=== PATIENT | male | born 1945 | race Caucasian/White ===

== ENCOUNTER → 2018-02-09 | Outpatient (CLI) | payer MEDICARE, OTHER ==
[~2018-02-09] MED LIST: ADULT LOW DOSE81 MG; AMBEREN; DIOVAN160 MG; LIPITOR20 MG; MECLIZINE HCL12.5 MG PO; ZOFRAN4 MG PO
== END ==
LOC: M.ULTRA 09:36
DX: I12.9 Hypertensive chronic kidney disease with stage 1 through stage 4 chronic kidney disease, or unspecified chronic kidney disease (principal); N18.3 Chronic kidney disease, stage 3 (moderate)

== ENCOUNTER → 2018-04-28 | Outpatient (CLI) | payer MEDICARE, OTHER ==
[2018-04-28 09:41] LABS: CREATININE 1.6 mg/dL (0.6-1.3)
== END ==
LOC: M.LAB 09:10
PROVIDERS: Urology
DX: R31.29 Other microscopic hematuria (principal); I12.9 Hypertensive chronic kidney disease with stage 1 through stage 4 chronic kidney disease, or unspecified chronic kidney disease

== ENCOUNTER → 2018-05-05 | Outpatient (CLI) | payer OTHER, MEDICARE ==
[2018-05-05 11:52] LABS: CREATININE 1.3 mg/dL (0.6-1.3)
== END ==
LOC: M.LAB 10:30 → M.MRI 11:30
PROVIDERS: Urology
DX: N28.1 Cyst of kidney, acquired (principal); R31.29 Other microscopic hematuria

== ENCOUNTER → 2019-09-06 | Day surgery (SDC) | payer OTHER, MEDICARE ==
[~2019-09-06] MED LIST changes: +LEVO-T50 MCG PO; +NORVASC 2.5 MG2.5 M1 PO; +OXYCODONE HCL 55 MG PO; +PERFECT IRON25 MG PO; +PRINIVIL20 M1 PO; +VITAMIN C1000 MG PO
[2019-09-06 06:50] LABS: HEMOGLOBIN 15.6 gm/dL (14.0-18.0); MCH 28.9 pg (26.0-34.0); MCHC 33.9 g/dL (28.0-37.0); MCV 85.3 fL (80.0-100.0); MPV 8.5 fl. (7.2-11.1); RBC 5.4 mil/uL (4.50-6.00); RDW-CV 12.9 % (10.5-14.5); WBC 11.1 thou/uL (4.0-11.0)
[2019-09-06 06:54] LABS: CALCIUM 9.1 mg/dL (8.5-10.1); CREATININE 1.6 mg/dL (0.6-1.3); POTASSIUM 4.5 mmol/L (3.5-5.1)
[2019-09-06 06:59] LABS: ALBUMIN 3.8 g/dL (3.4-5.0); TOTAL BILIRUBIN 0.4 mg/dL (<0.1-1.0); TOTAL PROTEIN 7.4 g/dL (6.4-8.2)
--- NOTE | 2019-09-06 10:02 | EKG ---
[place] [address] ELECTROCARDIOGRAM REPORT Name: SHARRONSARA ARTURO Room: [facility].#: [id number] Admission: 09/06/19 Attend Phys: Schuyler Carvajal DO Discharge: Date of : 47 Report #: [id number] THIS REPORT FOR: //name// [facility] Test Date: 2019-09-06 Test Time: 07:12:50 Pat Name: SARA MCDERMOTT Department: Room: Gender: M [facility] Supervisor: RT : 1945 Requested By: Schuyler Carvajal Order Number: [id number] Reading MD: Dony Smalls Measurements Intervals Ignacio Rate: 65 P: 69 ME: 163 QRS: 39 QRSD: 81 T: 41 QT: 390 QTc: 406 Interpretive Statements Sinus rhythm Atrial premature complex Compared to ECG 05/12/2011 08:37:08 Atrial premature complex(es) now present Electronically Signed On 09-06-2019 10:02:06 CDT by Dony Smalls [email or web address] <ELECTRONICALLY SIGNED> By: Dony Smalls MD, [facility] 09/06/19 1002 1 1 Dony Smalls MD, FACC /EPI
--- NOTE | 2019-09-20 13:35 | OP ---
[address] [address] OPERATIVE REPORT Name: SHARRONSARA MORRIS Room: [facility]#: [id number] Admission: 09/06/19 Attend Phys: Schuyler Carvajal DO Discharge: Date of : 47 Report #: [id number] THIS REPORT FOR: //name// CC: Schuyler Moya DO DATE OF SERVICE: 09/06/2019 REFERRING PHYSICIAN: Fred Moya DO PREOPERATIVE DIAGNOSIS: Recurrent left inguinal hernia. POSTOPERATIVE DIAGNOSIS: Recurrent left indirect and direct inguinal hernia. PROCEDURE: Open recurrent left inguinal hernia repair with 11 x [address] mesh. SURGEON: Schuyler Carvajal DO BRADDISHER: June Mejia DO, PGY2, Resident. SECOND MANAGER PRACTICE: Student, Dr. Jayson Sofia, MS3. ANESTHESIA: General endotracheal. ESTIMATED BLOOD LOSS: Less than 10 mL. COMPLICATIONS: None. DESCRIPTION OF PROCEDURE: After obtaining proper consents and discussing risks and complications with the patient, he was taken to the operating room, laid in the supine position, administered general anesthesia. He was then prepped and draped in the usual sterile fashion. A timeout was performed. We confirmed the appropriate patient and procedure. Preoperative antibiotics were given. SCDs were in place. The site had been marked in preoperative holding area. We then made an incision midway between the ASIS and pubic tubercle. This incision was 5 cm long. It was carried down through the skin into the subcutaneous tissue using electrocautery for hemostasis. Once the external oblique fascia was encountered, it was incised along its fibers, grasped and elevated with hemostats and dissected free from the underlying internal oblique muscle and ilioinguinal nerve. The internal oblique muscle was then split and the transversalis fascia was identified. The transversalis fascia was then bluntly opened using a hemostat. We immediately identified the spermatic cord and this appeared to have an indirect inguinal hernia sac on it. I identified the inferior epigastric vessels. They were retracted medially. [place] [address] OPERATIVE REPORT Name: SARA MCDERMOTT Room: [facility].#: [id number] Admission: 09/06/19 Attend Phys: Schuyler Carvajal DO Discharge: Date of : 47 Report #: [id number] spermatic cord up into the wound and we did dissect an indirect inguinal hernia sac free from the cord. The sac was reduced all the way back into the peritoneal cavity. We then also identified a very small direct inguinal hernia. This was dissected free and reduced back into the peritoneal cavity and then I developed the preperitoneal space using blunt finger dissection to allow for placement of an 11 x [address] mesh. The mesh was then inserted and opened in its entirety and then sutured in place to the transversalis fascia using 0 PDS suture. During this dissection, I was not able to identify any previously placed mesh. I was unable to feel anything during this dissection in the preperitoneal space and the patient had said that he had previously had a laparoscopic inguinal hernia repair on this side. However, I was unable to identify any previous repair. After the mesh was sutured in place to the transversalis fascia using 0 PDS suture, I then closed the external oblique fascia over top of this using 0 PDS suture as well. The external oblique fascia was then closed using running 0 Vicryl suture. The subcutaneous tissues and fascia were injected with 0.5% Marcaine without epinephrine and then the subcutaneous tissues were closed using 3-0 Vicryl suture. Skin was closed using 4-0 Monocryl subcuticular stitches. Mastisol, Steri-Strips, sterile OpSite and pressure dressings were placed. The patient was awakened in the operating room and transported to recovery room in stable condition. <ELECTRONICALLY SIGNED> By: Schuyler Carvajal DO 09/20/19 1335 0919 [id number] Carvajal DO /nt
== END | disposition home or self-care (01) ==
LOC: M.SUR 06:23
PROVIDERS: Surgery
DX: K40.91 Unilateral inguinal hernia, without obstruction or gangrene, recurrent (principal); Z98.890 Other specified postprocedural states; Z79.899 Other long term (current) drug therapy; Z79.82 Long term (current) use of aspirin